=== PATIENT | male | born 2000 | race Caucasian/White ===

== ENCOUNTER 2024-08-17 20:47 | Emergency (ER) | payer BC, SELFPAY ==
--- NOTE | ~2024-08-17 | XR_ITS ---
CLINICAL HISTORY: cough 2 view chest x-ray. Comparison: None Findings: The lungs are adequately expanded. No focal consolidation. No effusion or pneumothorax. Cardiac and mediastinal contours are within normal limits. No acute osseous abnormality Impression: No acute process. This document has been electronically signed by: Malik Sal MD on 08/17/2024 22:21:25
[2024-08-17 20:52] VITALS: BP 127/67; PULSE 95; RESP 17; TEMP 36.5; O2SAT 98; BMI 22.2
[2024-08-17 21:21] LABS: IDNOW Serial# 58CA691E; Strep A Nucleic Acid Negative (Negative)
[2024-08-17 21:48] LABS: Influenza A PCR NEGATIVE (Negative); Influenza B PCR NEGATIVE (Negative); Resp Syncy Virus RNA Qual PCR NEGATIVE (Negative); SARS COV2 PCR INHOUSE NEGATIVE (Negative)
[2024-08-17 22:52] VITALS: BP 124/66; PULSE 90; RESP 18; TEMP 36.6; O2SAT 98
[2024-08-17] MEDS: Lidocaine HCl Viscous 2 % 15 ML SOLUTION MUCOUS MEM (23:02)
[2024-08-17] MEDS: Ketorolac Tromethamine 15 MG/ML VIAL IM (23:03)
[2024-08-17] MEDS: Magnesium Hydrox/Alum Hydrox 30 ML ORAL.SUSP PO (23:12)
[2024-08-17 23:27] VITALS: BP 118/68; PULSE 79; RESP 16; TEMP 36.9; O2SAT 98
[2024-08-17 23:54] LABS: Monotest Negative (Negative)
--- NOTE | 2024-08-18 00:05 | MHC.EDTECH ---
This pct assumed care of Patient at 2300 ,blood drawn and sent to lab ,vitals taken ,Call mace within Pt reach .
--- NOTE | 2024-08-18 00:24 | ED.GENADULT ---
HPI - General Adult General Chief complaint: Upper Respiratory Symptoms Stated complaint: throat pain, fever Time Seen by Provider: 08/17/24 22:28 Source: patient Limitations: no limitations History of Present Illness ED Provider: Lesa Khan PA-C HPI narrative: 23-year-old male presents with sore throat x2 weeks. Associated body aches, fever chills and dry cough. No sick contacts with similar symptoms. Related Data Allergies Allergy/AdvReac Type Severity Reaction Status Date / Time No Known Allergies Allergy Verified 08/17/24 20:55 Review of Systems Review of Systems: Yes all other systems are reviewed and are negative Constitutional: Constitutional: Reports fatigue, Reports fever(s) and Reports malaise ENT: Denies nasal congestion and Reports sore throat Cardiovascular: Cardiovascular: Denies chest pain and Denies dyspnea Respiratory: Respiratory: Denies chest congestion, Reports cough and Denies dyspnea Endocrine: Endocrine: Reports fatigue PMFSH Past Medical History Attestation statement: The following information was validated with the patient. Social History Social History Advance Directives: No Advance Directives Information Provided: Yes Do you have a plan to hurt others: No Plan Physical Exam ED Vital Signs: Vital Signs - 24 hr 08/17/24 20:52 08/17/24 22:52 08/17/24 23:27 Temperature 97.7 F 97.8 F 98.4 F Pulse Rate 95 90 79 Respiratory Rate 17 18 16 Blood Pressure 127/67 124/66 118/68 Pulse Oximetry 98 98 98 Oxygen Delivery Method Room Air Room Air BMI result Body Mass Index 22.2 Const Other: Alert Orientation/consciousness: patient oriented x3 HENMT Other: Oropharynx is erythematous, tonsils prominent with overlying exudate uvula midline no sublingual fluctuance, no swelling inferior to the jawline Neck Other: Anterior cervical lymphadenopathy Resp Effort & Inspection: normal respiratory effort Cardio Other: Normal peripheral perfusion Skin Other: Warm dry no rash Neuro General: patient oriented x3, gait normal, no focal motor deficits and CN's II-XI intact bilaterally Psych Other: Cooperative Medications Administered Discontinued Medications Generic Name Dose Route Start Last Admin Trade Name Freq PRN Reason Stop Dose Admin Acetaminophen 975 mg 08/17/24 22:57 08/17/24 23:12 Acetaminophen 325 Mg Tablet PO 08/17/24 22:58 Not Given ONCE ONE Al Hydroxide/Mg Hydroxide 30 ml 08/17/24 22:57 08/17/24 23:12 Magnesium Hydrox/Alum Hydrox 30 Ml Oral.Susp PO 08/17/24 22:58 30 ml ONCE ONE Administration Ketorolac Tromethamine 15 mg 08/17/24 22:57 08/17/24 23:03 Ketorolac Tromethamine 15 Mg/Ml Vial IM 08/17/24 22:58 15 mg ONCE ONE Administration Lidocaine HCl 15 ml 08/17/24 22:57 08/17/24 23:02 Lidocaine Hcl Viscous 2 % 15 Ml Solution MUCOUS MEM 08/17/24 22:58 15 ml ONCE ONE Administration Medical Decision Making Medical Decision Making MDM Narrative: 23-year-old male presents with sore throat x2 weeks. Associated body aches, fever chills and dry cough. No sick contacts with similar symptoms. No risk factors for STD. No chronic issues History: Per patient I have considered the following differential diagnoses: Strep pharyngitis, gonococcal pharyngitis, viral syndrome, mononucleosis Plan: Chest x-ray, Viral panel and strep screen obtained from triage, everything is negative adding on a mono spot. I asked the patient if he had risk factors for STDs, he denies, giving Toradol, Maalox and lidocaine and a dose of Decadron I have independently reviewed the following tests: Labs: Viral panel negative, strep screen negative mono negative Chest x-ray:Findings: The lungs are adequately expanded. No focal consolidation. No effusion or pneumothorax. Cardiac and mediastinal contours are within normal limits. No acute osseous abnormality Impression: No acute process. Lab Data Labs: Lab Results 08/17/24 08/17/24 Range/Units 21:07 23:31 Monoscreen Negative (Negative) Influenza Type A (PCR) NEGATIVE (Negative) Influenza Type B (PCR) NEGATIVE (Negative) RSV RNA Qual (PCR) NEGATIVE (Negative) SARS-CoV-2 RNA (RT-PCR) NEGATIVE (Negative) S. pyogenes GrpA ALEE Negative (Negative) Discharge Plan Discharge Clinical Impression: Pharyngitis Patient Disposition: Home, Self-Care Instructions: Pharyngitis (ED) Additional Instructions: You were tested for influenza RSV and COVID, the viral panel was negative. You do not have strep throat. He do not have mononucleosis. You likely have yet another virus causing your symptoms. See home care instructions. You received a 1 time dose of a steroid, this will help to reduce the inflammation of your tonsils. Using warm saltwater gargles will help with throat pain. You can alternate between [id number] ibuprofen 600 mg taken every 6 hours with food, with [id number] Tylenol 1000 mg taken every 8 hours, for fevers and body aches. Follow up with your primary care provider as needed. Stand Alone Forms: Work/School Release Print Language: Sammarinese
[2024-08-18] MEDS: dexAMETHasone 2 MG TABLET 10 MG PO (00:53)
[2024-08-18 00:56] VITALS: BP 118/68; PULSE 79; RESP 16; TEMP 36.9; O2SAT 98
== END 2024-08-18 00:57 | disposition home or self-care (01) ==
PROVIDERS: Physician Assistant Medical; Emergency Provider Emergency Medicine
DX: J02.9 Acute pharyngitis, unspecified (principal); R50.9 Fever, unspecified; R05.9 Cough, unspecified; Z03.818 Encounter for observation for suspected exposure to other biological agents ruled out
CPT/HCPCS: 0241U; 36415; 71046; 86308; 87651; 96372; 99284; J1885; J8540

== ENCOUNTER → 2024-08-17 21:30 | Outpatient (BNV) | payer BC, SELFPAY | PROVIDERS: Emergency Provider Emergency Medicine; Visit Provider Radiology Vascular & Interventional Radiology | DX: R05.9 Cough, unspecified (principal) | CPT/HCPCS: 71046 ==